=== PATIENT | female | born 2000 | race Hispanic/Latino ===

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

== ENCOUNTER 2020-01-25 10:17 | Emergency (ER) | payer BC ==
[~2020-01-25] VITALS: Ht 160 cm; Wt 78.0 kg
[2020-01-25] MEDS ORDERED: LIDOCAINE VISC 2% SOLN 15 ML UDC ONE (10:41)
[2020-01-25] MEDS ORDERED: MAGNESIUM/ALUMINUM/SIMETHICONE 30 ML UDC ONE (10:42)
[2020-01-25] MEDS ORDERED: BELLADONNA ALK/PHENOBARBITAL 5 ML UDC ONE (10:42)
[2020-01-25] MEDS: ONDANSETRON HCL INJ 2MG/ML 2ML 2 MG/ML VIAL IV STA (10:46)
[2020-01-25] MEDS: DONNATAL/LIDOCAINE/MAALOX 30 ML SUSP PO ONE (10:46)
[2020-01-25] MEDS: SODIUM CHLORIDE 0.9% 1000ML 2,000 ML IV STA (10:46)
[2020-01-25] MEDS: FAMOTIDINE 20 MG/2 ML VIAL IV STA (10:46)
[2020-01-25 10:53] LABS: BASOPHILS % 0.6 % (0.0-1.0); EOSINOPHILS % 0.5 % (0.0-6.0); HEMOGLOBIN 14.6 g/dL (12.0-16.0); LYMPHOCYTES # (AUTO) 1.4 (1.0-3.2); LYMPHOCYTES % 21.8 % (18.0-39.1); MEAN CORPUSCULAR VOLUME 88.5 fL (81-99); MONOCYTES # (AUTO) 0.4 (0.2-0.8); NEUTROPHILS # (AUTO) 4.5 (2.1-6.9); NEUTROPHILS % 70.8 % (38.7-80.0); PLATELET COUNT 266 x10e3/uL (140-360); RED BLOOD COUNT 4.86 x10e6/uL (3.6-5.1); RED CELL DISTRIBUTION WIDTH 12.1 % (11.7-14.4)
--- OUTSIDE RECORDS SUMMARY | 2020-01-25 11:02 | XMS REPORT | Continuity of Care Document ---
Author Author [facility] Organization [facility] Address [address] [place] [address] [address]. [address] [place] [address] Phone Unavailable Care Team Providers Care As400 Administrator Name Role Phone NO, PCP PCP Unavailable ILSA, A LAIRD Attphys Unavailable TIANNA, S AMBICA Attphys Unavailable Payers Payer Name Policy Type Policy Number Effective Date Expiration Date S jairon [employer] [place] [employer] [id number] 2018 00:00:00 [facility] Problems Condition Name Condition Details Condition Category Status Onset Date Resolution Date Last Treatment Date Treating Clinician Comments Source Bronchitis Problem Active [facility] Allergies, Adverse Reactions, Alerts This patient has no known allergies or adverse reactions. Social History Social Habit Start Date Stop Date Quantity Comments Source Sex Assigned At 2000 00:00:00 2000 00:00:00 Female [facility] Medications Ordered Medication Name Filled Medication Name Start Date Stop Da te Current Medication? Ordering Clinician Indication Dosage Frequency Signature (SIG) Comments Components Source Mupirocin Mupirocin 2018-08-07 18:11:00 Yes 22 Three Times A Day [facility] Prednisone Prednisone 2018-08-07 18:11:00 Yes 40 Denia ly [facility] Vital Signs Vital Name Observation Time Observation Value Comments Source Body Temperature 2019-12-05 09:53:00 98.9 [degF] [facility] Weight 2019-12-05 08:04:00 172 [lb_av] [facility] BMI (Body Mass Index) 2019-12-05 08:04:00 30.5 kg/m2 [facility] Procedures This patient has no known procedures. Plan of Care Planned Activity Planned Date Details Comments Source Instructions Bronchitis (Acute) - Adult [facility] Encounters Start Date/Time End Date/Time Encounter Type Admission Type Attendi [facility] Care Department Encounter ID Source 2019-12-05 08:10:00 2019-12-05 08:10:00 Registered Emergency Room 1 TIGRE ROSENBAUM [facility] [id number] [facility] 2018-09-10 20:52:00 2018-09-11 05:42:00 Departed Emergency Room 1 JOSEF WYNN [facility] [id number] [facility] 2018-08-07 17:13:00 2018-08-07 18:42:00 Departed Emergency Room [facility] [id number] [facility] 2018-08-05 18:23:00 2018-08-05 19:10:00 Departed Emergency Room [facility] [id number] [facility] Results Test Description Test Time Test Comments Results Result Comments Source CHEST SINGLE (PORTABLE) 2019-12-05 09:13:00 [place] [address] Patient Name: HARSHIL NICHOLS MR #: [id number] : 2000 Age/Sex: 19/F Req #: [id number] Adm Physician: Ordered by: TIGRE ROSENBAUM MD Report #: [id number] Location: ER Room/Bed: Procedure: [id number] DX/CHEST SINGLE (PORTABLE) Exam Date: 12/05/19 Exam Time: 0900 REPORT STATUS: Signed EXAMINATION: CHEST SINGLE (PORTABLE) INDICATION: Y COUGH, FEVER [id number] COMPARISON: None FINDINGS: AP view TUBES and LINES: None. LUNGS: Lungs are well inflated. Lungs are clear. There is no evidence of pneumonia or pulmonary edema. PLEURA: No pleural effusion or pneumothorax. HEART AND MEDIASTINUM: The cardiomediastinal silhouette is unremarkable.. BONES AND SOFT TISSUES: No acute osseous lesion. Soft tissues are unremarkable. UPPER ABDOMEN: No free air under the diaphragm. IMPRESSION: No acute thoracic abnormality. Signed by: Dr. Gema Ruelas M.D. on 12/05/2019 9:14 AM Dictated By: GEMA RUELAS MD 3 Transcribed By: TETO on 12/05/19913 COPY TO: TIGRE ROSENBAUM MD Urine human chorionic gonadotropin (hCG) detection 3 08:28:00 Test Item Urine Test (test code = 2106-3) NEGATIVE NEGATIVE [facility] CenterInfluenza virus A and B antigen identification by bqofycwvssuhpdnylj4052-37-03 08:28:00* Test Item Value Reference Range Interpretation Comments Influenza Virus Types A,B Antigen (test code = 78551-9) NEGATIVE NEGATIVE [facility] antigen detection in wzsekn2342-12-46 08:28:00* Test Item Value Reference Range Interpretation Comments Group A Streptococcus Screen (test code = 09611-8) NEGATIVE NEG ATIVE [facility] CenterCT BRAIN UF0101-94-02 04:34:00 [place] [address] Patient Name: HARSHIL NICHOLS MR #: [id number] : Age/Sex: 17/F Req #: [id number] Adm Physician: Ordered by: JOSEF WYNN MD Report #: [id number] Location: ER Room/Bed: Procedure: [id number]/CT BRAIN WO Exam Date: Exam Time: REPORT STATUS: Signed Examination: CT BRA IN WO History:Numbness; bodyache. Headache. Comparison studies:None Technique: Axial images were obtained from the skull base to the vertex. Cor onal and sagittal images reconstructed from the axial data. Dose modulation, i terative reconstruction, and/or weight based adjustment of the mA/kV was utili zed to reduce the radiation dose to as low as reasonably achievable. Intrav enous contrast: None Findings: Scalp: No abnormalities. Bones: No fr actures, blastic or lytic lesions. Brain sulci: Appropriate for age. Vent ricles: Normal in size and configuration. No hydrocephalus. Extra-axial spa ce: No abnormalities. Parenchyma: No abnormal densities. No masses, hemorrhage, or acute or chronic cortical based vascular insults.. Sellar/s uprasellar region: No abnormalities. Craniocervical junction: Patent foramen m agnum. No Chiari one malformation. Incidental findings: None. Impre ssion: Normal head CT. Signed by: Dr. Shelby Rocha M.D. on 2018 4:36 AM Dictated By: SHELBY EM MD Electronically Sig aliyah By: SHELBY EM MD on 09/11/18435 Transcribed By: TETO on 09/11/18435 COPY TO: JOSEF WYNN MD Sodium Level 2018-09-11 03:34:00* Test Item Value Reference Range Interpretation Comments Sodium Level (test code = 2951-2) 137 136-145 [facility]Potassium Duwdx2895-47-76 03:34:00* Test Item Value Reference Range Interpretation Comments Potassium Level (test code = 2823-3) 3.8 3.5-5.1 [facility] CenterChloride Xesxb0392-24-89 03:34:00* Test Item Value Reference Range Interpretation Comments Chloride Level (test code = 2075-0) 101 98-107 [facility] CenterCarbon Dioxide Rfxlb5683-75-82 03:34:00* Test Item Value Reference Range Interpretation Comments Carbon Dioxide Level (test code = 2028-9) 26 22-29 [facility] CenterAnion Zmo0710-58-97 03:34:00* Test Item Value Reference Range Interpretation Comments Anion Gap (test code = 67829-4) 13.8 8-16 [facility] CenterBlood Urea Yykvzjej3405-08-28 03:34:00* Test Item Value Reference Range Interpretation Comments Blood Urea Nitrogen (test code = 3094-0) 14 7-26 [facility] CenterCreatinine2019-07-11 03:34:00* Test Item Value Reference Range Interpretation Comments Creatinine (test code = 2160-0) 0.75 0.57-1.11 [facility] CenterBUN/Creatinine Kwekz0276-78-65 03:34:00* Test Item Value Reference Range Interpretation Comments BUN/Creatinine Ratio (test code = 3097-3) 19 6-25 [facility] CenterGlucose Ridvn5435-94-30 03:34:00* Test Item Value Reference Range Interpretation Comments Glucose Level (test code = FAE7329) 98 74-118 [facility] CenterCalcium Nvxeu9351-10-42 03:34:00* Test Item Value Reference Range Interpretation Comments Calcium Level (test code = 30144-4) 9.8 8.4-10.2 [facility] CenterTotal Xvcbkmsft3600-93-18 03:34:00* Test Item Value Reference Range Interpretation Comments Total Bilirubin (test code = 1975-2) 0.3 0.2-1.2 [facility] CenterAspartate Amino Transf (AST/SGOT) 2018-09-11 03:34:00* Test Item Value Reference Range Interpretation Comments Aspartate Amino Transf (AST/SGOT) (test code = Aspartate Amino Transf (AST/SGOT)) 21 5-34 [facility] CenterAlanine Aminotransferase (ALT/SGPT) 2018-09-11 03:34:00* Test Item Value Reference Range Interpretation Comments Alanine Aminotransferase (ALT/SGPT) (test code = 1742-6) 34 0-55 [facility] CenterTotal Vvezqco9273-02-37 03:34:00* Test Item Value Reference Range Interpretation Comments Total Protein (test code = 2885-2) 7.9 6.5-8.1 [facility] CenterAlbumin2019-07-11 03:34:00* Test Item Value Reference Range Interpretation Comments Albumin (test code = 1751-7) 4.5 3.5-5.0 [facility] CenterGlobulin2019-07-11 03:34:00* Test Item Value Reference Range Interpretation Comments Globulin (test code = 23048-0) 3.4 2.3-3.5 [facility] CenterAlbumin/Globulin Aelgo7101-54-81 03:34:00 * Test Item Value Reference Range Interpretation Comments Albumin/Globulin Ratio (test code = 1759-0) 1.3 0.8-2.0 [facility] CenterAlkaline Cszoqupkbon6818-28-11 03:34:00* Test Item Value Reference Range Interpretation Comments Alkaline Phosphatase (test code = 6768-6) 120 40-150 [facility] CenterCreatine Hsugcv5031-40-64 03:34:00* Test Item Value Reference Range Interpretation Comments Creatine Kinase (test code = 2157-6) 97 29-168 [facility] CenterCreatine Kinase QO2153-67-30 03:34:00* Test Item Value Reference Range Interpretation Comments Creatine Kinase MB (test code = 63133-2) 1.20 0-5.0 [facility] CenterTroponin T0367-29-82 03:34:00* Test Item Value Reference Range Interpretation Comments Troponin I (test code = FKG5767) < 0.001 0-0.300 [facility] CenterWhite Blood Kuawm4685-92-57 03:33:00* Test Item Value Reference Range Interpretation Comments White Blood Count (test code = 6690-2) 7.59 4.8-10.8 [facility] CenterRed Blood Gtoea0913-88-04 03:33:00* Test Item Value Reference Range Interpretation Comments Red Blood Count (test code = 789-8) 4.75 3.6-5.1 [facility] CenterHemoglobin2019-07-11 03:33:00* Test Item Value Reference Range Interpretation Comments Hemoglobin (test code = 30490-2) 14.2 12.0-16.0 [facility] CenterHematocrit2019-07-11 03:33:00* Test Item Value Reference Range Interpretation Comments Hematocrit (test code = 4544-3) 41.8 34.2-44.1 [facility] CenterMean Corpuscular Lpwyni9310-17-57 03:33:00* Test Item Value Reference Range Interpretation Comments Mean Corpuscular Volume (test code = 787-2) 88.0 81-99 [facility] CenterMean Corpuscular Pgqgzzfazh8872-50-18 03:33:00* Test Item Value Reference Range Interpretation Comments Mean Corpuscular Hemoglobin (test code = 785-6) 29.9 28-32 [facility] CenterMean Corpuscular Hemoglobin Concent 2018-09-11 03:33:00* Test Item Value Reference Range Interpretation Comments Mean Corpuscular Hemoglobin Concent (test code = 786-4) 34.0 31-35 [facility] CenterRed Cell Distribution Osufd2911-15-88 03:33:00* Test Item Value Reference Range Interpretation Comments Red Cell Distribution Width (test code = 72111-4) 11.8 11.7 -14.4 [facility] CenterPlatelet Spxfl5579-94-45 03:33:00* Test Item Value Reference Range Interpretation Comments Platelet Count (test code = 777-3) 283 140-360 [facility] CenterNeutrophils (%) (Auto)2018-09-11 03:33:00 * Test Item Value Reference Range Interpretation Comments Neutrophils (%) (Auto) (test code = 06366-9) 53.1 38.7-80.0 [facility] CenterLymphocytes (%) (Auto)2018-09-11 03:33:00 * Test Item Value Reference Range Interpretation Comments Lymphocytes (%) (Auto) (test code = 736-9) 36.6 18.0-39.1 [facility] CenterMonocytes (%) (Auto)2018-09-11 03:33:00* Test Item Value Reference Range Interpretation Comments Monocytes (%) (Auto) (test code = 5905-5) 7.5 4.4-11.3 [facility] CenterEosinophils (%) (Auto)2018-09-11 03:33:00 * Test Item Value Reference Range Interpretation Comments Eosinophils (%) (Auto) (test code = 713-8) 2.0 0.0-6.0 [facility] CenterBasophils (%) (Auto)2018-09-11 03:33:00* Test Item Value Reference Range Interpretation Comments Basophils (%) (Auto) (test code = 706-2) 0.4 0.0-1.0 [facility] CenterIM GRANULOCYTES %2018-09-11 03:33:00* Test Item Value Reference Range Interpretation Comments IM GRANULOCYTES % (test code = IM GRANULOCYTES %) 0.4 0.0- 1.0 [facility] CenterNeutrophils # (Auto)2018-09-11 03:33:00* Test Item Value Reference Range Interpretation Comments Neutrophils # (Auto) (test code = 751-8) 4.0 2.1-6.9 [facility] CenterLymphocytes # (Auto)2018-09-11 03:33:00* Test Item Value Reference Range Interpretation Comments Lymphocytes # (Auto) (test code = 86311-7) 2.8 1.0-3.2 [facility] CenterMonocytes # (Auto)2018-09-11 03:33:00* Test Item Value Reference Range Interpretation Comments Monocytes # (Auto) (test code = 742-7) 0.6 0.2-0.8 [facility] CenterEosinophils # (Auto)2018-09-11 03:33:00* Test Item Value Reference Range Interpretation Comments Eosinophils # (Auto) (test code = 711-2) 0.2 0.0-0.4 [facility] CenterBasophils # (Auto)2018-09-11 03:33:00* Test Item Value Reference Range Interpretation Comments Basophils # (Auto) (test code = 704-7) 0.0 0.0-0.1 [facility] CenterAbsolute Immature Granulocyte (auto 2018-09-11 03:33:00* Test Item Value Reference Range Interpretation Comments Absolute Immature Granulocyte (auto (michael t code = Absolute Immature Granulocyte (auto) 0.03 0-0.1 [facility] CenterUrine [id number] 23:34:00* Test Item Value Reference Range Interpretation Comments Urine WBC (test code = 5821-4) 0-5 0-5 [facility] CenterUrine CYW7150-46-00 23:34:00* Test Item Value Reference Range Interpretation Comments Urine RBC (test code = 05130-9) 0-5 0-5 [facility] CenterUrine Zwehprdu5240-76-25 23:34:00* Test Item Value Reference Range Interpretation Comments Urine Bacteria (test code = 27094-1) FEW NONE [facility] CenterUrine Epithelial Kbwhm8303-70-81 23:34:00 * Test Item Value Reference Range Interpretation Comments Urine Epithelial Cells (test code = 98478-7) FEW NONE [facility] CenterUrine Opiates Fellsh6404-02-21 23:08:00* Test Item Value Reference Range Interpretation Comments Urine Opiates Screen (test code = 51815-8) NEGATIVE NEGATIVE ALL TESTS PERFORMED MANUALLY ON Realeyes TOX/SEE TESTDel Sol Medical CenterUrine Barbiturates Udbvdr9455-09-57 23:08:00* Test Item Value Reference Range Interpretation Comments Urine Barbiturates Screen (test code = 468353337) NEGATIVE NEGA TIVE [facility] CenterUrine Phencyclidine Itvpfh0450-68-84 23:08:00* Test Item Value Reference Range Interpretation Comments Urine Phencyclidine Screen (test code = 45680-3) NEGATIVE NEGAT ENRIQUE [facility] CenterUrine Amphetamines Plunhk2980-88-81 23:08:00* Test Item Value Reference Range Interpretation Comments Urine Amphetamines Screen (test code = 66826-5) NEGATIVE NEGATI VE [facility] CenterUrine Methamphetamines Tzclye7949-85-45 23:08:00* Test Item Value Reference Range Interpretation Comments Urine Methamphetamines Screen (test code = Urine Metha mphetamines Screen) NEGATIVE NEGATIVE [facility] CenterUrine Benzodiazepines Vaxcgw9058-52-09 23:08:00* Test Item Value Reference Range Interpretation Comments Urine Benzodiazepines Screen (test code = 69336-5) NEGATIVE NEG ATIVE [facility] CenterUrine Cocaine Cinelq8641-04-43 23:08:00* Test Item Value Reference Range Interpretation Comments Urine Cocaine Screen (test code = 3398-5) NEGATIVE NEGATIVE [facility] CenterUrine Cannabinoids Egegyt5144-60-55 23:08:00* Test Item Value Reference Range Interpretation Comments Urine Cannabinoids Screen (test code = 68818-0) NEGATIVE NEGATI VE THESE RESULTS ARE FOR MEDICAL TREATMENT ONLYTHIS REPORT CONTAINS UNCONFIR MED SCREENING RESULTS*POSITIVE RESULTS WILL BE CONFIRMED BY REFERENCE LAB UPON R EQUEST CUT-OFFDRUG CLASS CONCENTRATION ng/mLAmphetamines 1000Methamphetamines 1000Cocaine 300Opiate 300Phencyc lidine 25Cannabinoid 50Barbiturates 300Benzodiazepine 300Methadone 300[facility] Methadone Ytlrgp1518-86-07 23:08:00* Test Item Value Reference Range Interpretation Comments Urine Methadone Screen (test code = 94549-1) NEGATIVE NEGATIVE THESE RESULTS ARE FOR MEDICAL TREATMENT ONLYTHIS REPORT CONTAINS UNCONFIR MED SCREENING RESULTS*POSITIVE RESULTS WILL BE CONFIRMED BY REFERENCE LAB UPON R EQUEST CUT-OFFDRUG CLASS CONCENTRATION ng/mLAmphetamines 1000Methamphetamines 1000Cocaine Metabolite 300Opiate 300Phencyc lidine 25Cannabinoid 50Barbiturates 300Benzodiazepine 300Methadone 300[facility] HospitalUrine Wowt9282-85-13 23:08:00* Test Item Value Reference Range Interpretation Comments Urine Test (test code = 2106-3) NEGATIVE NEGATIVE [facility] CenterUrine Hrzkh5044-67-35 23:05:00* Test Item Value Reference Range Interpretation Comments Urine Color (test code = 5778-6) YELLOW YELLOW [facility] CenterUrine Kzrhkur0450-20-50 23:05:00* Test Item Value Reference Range Interpretation Comments Urine Clarity (test code = 52613-5) CLEAR CLEAR [facility] CenterUrine Specific Ztnezmu9862-87-27 23:05:00 * Test Item Value Reference Range Interpretation Comments Urine Specific [place] (test code = 5811-5) <=1.005 1.010-1.02 5 [facility] CenterUrine eB7242-05-02 23:05:00* Test Item Value Reference Range Interpretation Comments Urine pH (test code = 21982-7) 6.5 5-7 [facility] Leukocyte Mvcuotzv2376-15-16 23:05:00* Test Item Value Reference Range Interpretation Comments Urine Leukocyte Esterase (test code = 28485-2) NEGATIVE NEGATIV E [facility] Xuehofw5450-35-64 23:05:00* Test Item Value Reference Range Interpretation Comments Urine Nitrite (test code = 93761-0) NEGATIVE NEGATIVE [facility] CenterUrine Akoyreo8691-88-70 23:05:00* Test Item Value Reference Range Interpretation Comments Urine Protein (test code = 76135-3) NEGATIVE NEGATIVE [facility] CenterUrine Glucose (UA)2018-09-10 23:05:00* Test Item Value Reference Range Interpretation Comments Urine Glucose (UA) (test code = 43258-0) NEGATIVE NEGATIVE [facility] CenterUrine Lkbejgl8594-82-07 23:05:00* Test Item Value Reference Range Interpretation Comments Urine Ketones (test code = 07036-7) NEGATIVE NEGATIVE [facility] CenterUrine Geygbyvqlcen3479-14-90 23:05:00* Test Item Value Reference Range Interpretation Comments Urine Urobilinogen (test code = 63245-0) 0.2 0.2-1 [facility] CenterUrine Avuejtsre1269-90-47 23:05:00* Test Item Value Reference Range Interpretation Comments Urine Bilirubin (test code = 1977-8) NEGATIVE NEGATIVE [facility] CenterUrine Chsvc6230-09-89 23:05:00* Test Item Value Reference Range Interpretation Comments Urine Blood (test code = 75185-6) NEGATIVE NEGATIVE [facility]
--- NOTE | 2020-01-25 11:03 | Emergency Department Note ---
History of Present Illnes History of Present Illness Chief Complaint: General Medicine Complaints History of Present Illness This is a 19 year old female that has a history of lupus although she was told by her mother's decision not she didn't at some point. Patient's here because has been having worsening nausea vomiting for the last 2-3 days. Patient states that she has bouts of this last was multiple months ago. Patient also with midepigastric discomfort, denies any severe abdominal pain, aside from the nausea and vomiting, she denies any concern for vaginal bleeding and vaginal discharge STD, recent negative test. Patient is not under treatment for lupus at this point. She's never received treatment from lupus even though she was seeing a stereotype molder. Historian: Patient Arrival Mode: Car Onset (how long ago): day(s) (3) Location: diffuse Quality: abd, VAISHALI Radiation: Reports non-radiation Severity: moderate Onset quality: gradual Duration (how long): day(s) (3) Timing of current episode: constant Progression: worsening Context: Reports recent illness Relieving factors: none Exacerbating factors: none Associated symptoms: Reports loss of appetite, Reports nausea/vomiting Past Medical/Family History Physician Review I have reviewed the patient's past medical and family history. Any updates have been documented here. Past Medical History Recent Fever: No Clinical Suspicion of Infectio: No New/Unexplained Change in Ment: No Past Medical History: Lupus Other Medical History: KIDNEY REFLUX LUPUS Past Surgical History: None Other Last Tetanus: UTD Review of Systems Review of Systems Constitutional: Reports no symptoms EENTM: Reports no symptoms Cardiovascular: Reports no symptoms Respiratory: Reports no symptoms Gastrointestinal: Reports as per HPI Genitourinary: Reports no symptoms Musculoskeletal: Reports no symptoms Integumentary: Reports no symptoms Neurological: Reports no symptoms Psychological: Reports no symptoms Endocrine: Reports no symptoms Hematological/Lymphatic: Reports no symptoms Physical Exam Related Data Allergies: Coded Allergies: No Known Allergies (Unverified , 09/10/18) Triage Vital Signs Vital Signs Date Time Temp Pulse Resp B/P (MAP) Pulse Ox O2 Delivery O2 Flow Rate FiO2 01/25/20 10:24 98.7 92 18 142/85 100 Room Air Physical Exam CONSTITUTIONAL Constitutional: Present well-developed, Present well-nourished HENT HENT: Present normocephalic, Present atraumatic, Present oropharynx clear/moist, Present nose normal HENT L/R: Present left ext ear normal, Present right ext ear normal EYES Eyes: Reports PERRL, Reports conjunctivae normal NECK Neck: Present ROM normal PULMONARY Pulmonary: Present effort normal, Present breath sounds normal CARDIOVASCULAR Cardiovascular: Present regular rhythm, Present heart sounds normal, Present capillary refill normal, Present normal rate GASTROINTESTINAL Abdominal: Present soft, Present nontender, Present bowel sounds normal GENITOURINARY Genitourinary: Present exam deferred SKIN Skin: Present warm, Present dry MUSCULOSKELETAL Musculoskeletal: Present ROM normal NEUROLOGICAL Neurological: Present alert, Present oriented x 3, Present no gross motor or sensory deficits PSYCHOLOGICAL Psychological: Present mood/affect normal, Present judgement normal Results Laboratory Result Diagram: 01/25/20 1032 Laboratory Laboratory Tests Test 01/25/20 10:32 White Blood Count 6.37 x10e3/uL (4.8-10.8) Red Blood Count 4.86 x10e6/uL (3.6-5.1) Hemoglobin 14.6 g/dL (12.0-16.0) Hematocrit 43.0 % (34.2-44.1) Mean Corpuscular Volume 88.5 fL (81-99) Mean Corpuscular Hemoglobin 30.0 pg (28-32) Mean Corpuscular Hemoglobin Concent 34.0 g/dL (31-35) Red Cell Distribution Width 12.1 % (11.7-14.4) Platelet Count 266 x10e3/uL (140-360) Neutrophils (%) (Auto) 70.8 % (38.7-80.0) Lymphocytes (%) (Auto) 21.8 % (18.0-39.1) Monocytes (%) (Auto) 6.0 % (4.4-11.3) Eosinophils (%) (Auto) 0.5 % (0.0-6.0) Basophils (%) (Auto) 0.6 % (0.0-1.0) Neutrophils # (Auto) 4.5 (2.1-6.9) Lymphocytes # (Auto) 1.4 (1.0-3.2) Monocytes # (Auto) 0.4 (0.2-0.8) Eosinophils # (Auto) 0.0 (0.0-0.4) Basophils # (Auto) 0.0 (0.0-0.1) Absolute Immature Granulocyte (auto 0.02 x10e3/uL (0-0.1) Assessment & Plan Medical Decision Making MDM Patient is a 19-year-old female with recurrent nausea vomiting, we'll check a [place] to make sure she is not , we'll also treat symptomatically for nausea and vomiting. We'll also refer her to primary care doctor for further workup of this possible lupus. No rash on exam, abdomen soft benign. Reassessment Reassessment Patient feeling better, will follow up with primary care doctor. Assessment & Plan Final Impression: (1) Nausea & vomiting Depart Disposition: HOME, SELF-CARE Last Vital Signs Date Time Temp Pulse Resp B/P (MAP) Pulse Ox O2 Delivery O2 Flow Rate FiO2 01/25/20 10:24 98.7 92 18 142/85 100 Room Air Home Meds Active Scripts Ondansetron (ONDANSETRON ODT) 8 Mg Tab.rapdis, 4 MG SL Q4HR PRN for ausea, #6 TBS Prov:KIMBERLY BOND MD 01/25/20 Prednisone (PREDNISONE) 20 Mg Tab, 40 MG PO DAILY for 4 Days, TAB Prov:KEVON EGAN RN [employer] DUTY 08/07/18 Mupirocin (MUPIROCIN) 22 Gm Oint...g., 22 GM TOP TID for 5 Days, #1 EACH Prov:KEVON EGAN RN [employer] DUTY 08/07/18 Medications in the ED Ondansetron HCl 4 mg NOW STAT IV Last administered on 01/25/20at 10:46; Admin Dose 4 MG; Start 01/25/20 at 10:23; Stop 01/25/20 at 10:31; Status DC Sodium Chloride 2,000 ml @ 0 mls/hr Q0M STAT IV Last administered on 01/25/20at 10:46; Admin Dose 1,000 MLS/HR; Start 01/25/20 at 10:23; Stop 01/25/20 at 10:26; Status DC Famotidine 20 mg NOW STAT IV Last administered on 01/25/20at 10:46; Admin Dose 20 MG; Start 01/25/20 at 10:23; Stop 01/25/20 at 10:31; Status DC Belladonna Alkaloids/ Phenobarbital 10 ml ONCE ONCE PO Last administered on 01/25/20at 10:46; Admin Dose 10 ML; Start 01/25/20 at 10:45; Stop 01/25/20 at 10:46; Status DC Lidocaine HCl 15 ml STK-MED ONCE .ROUTE ; Start 01/25/20 at 10:41; Stop 01/25/20 at 10:34; Status DC Belladonna Alkaloids/ Phenobarbital 10 ml STK-MED ONCE .ROUTE ; Start 01/25/20 at 10:42; Stop 01/25/20 at 10:34; Status DC Magnesium Aluminum Silicate 30 ml STK-MED ONCE .ROUTE ; Start 01/25/20 at 10:42; Stop 01/25/20 at 10:34; Status DC KIMBERLY BOND MD Jan 25, 2020 11:03
[2020-01-25 11:17] LABS: ALANINE AMINOTRANSFERASE 46 IU/L (0-55); ALBUMIN/GLOBULIN RATIO 1.6 (0.8-2.0); ALKALINE PHOSPHATASE 95 IU/L (40-150); ANION GAP 12.7 mmol/L (8-16); BLOOD UREA NITROGEN 12 mg/dL (7-26); BUN/CREATININE RATIO 15 (6-25); CALCIUM 9.4 mg/dL (8.4-10.2); CARBON DIOXIDE 25 mmol/L (22-29); CHLORIDE 104 mmol/L (98-107); EST GLOMERULAR FILTRATION RATE > 60 ML/MIN (60-); GLUCOSE 109 mg/dL (74-118); POTASSIUM 3.7 mmol/L (3.5-5.1); SODIUM 138 mmol/L (136-145)
[2020-01-25] MEDS ORDERED: ONDANSETRON ODT8 MG SL (11:59)
== END 2020-01-25 12:49 | disposition home or self-care (01) ==
LOC: ER 10:58
DX: R11.2 Nausea with vomiting, unspecified (principal); M32.9 Systemic lupus erythematosus, unspecified
CPT/HCPCS: 36415; 80053; 84702; 85025; 99283; J2405; J7030